=== PATIENT | male | born 1945 | race Caucasian/White ===

== ENCOUNTER → 2022-07-18 | Outpatient (CLI) | payer BC, MEDICARE ==
[2022-07-18 15:20] VITALS: BP 147/78; PULSE 111; TEMP 98; BMI 37.5
--- NOTE | 2022-07-18 15:23 | P.HPBAR ---
Bariatric H&P - History & Physicial H&P Date: 07/18/22 History & Physicial: Visit/CC: lap band Patient initial contact: Initial weight: Initial weight in pounds: Height: 6 ft Initial BMI: Last weight: Current weight: 125.645 kg Current weight in pounds: 277.00 Current BMI: 37.5 [place] body weight (based on NIH guidelines): 80.739 kg Excess body weight loss: The patient is a 76 year-old M who presents for Bariatric Assessment. Patient resents today for LAP-BAND follow-up. Patient requesting a fill. He is gained weight. Past Medical History Past Medical History: Hypertension, Osteoarthritis (OA), Thyroid Disorder History of Any Multi-Drug Resistant Organisms: None Reported Past Surgical History: Bariatric Surgery, Cholecystectomy, Orthopedic Surgery Additional Past Surgical History / Comment(s): thyroid removed, left knee arthroscopy Past Anesthesia/Blood Transfusion Reactions: No Reported Reaction Past Psychological History: No Psychological Hx Reported Smoking Status: Never smoker Past Alcohol Use History: None Reported Past Drug Use History: None Reported Surgical - Exam Vital Signs Temp Pulse BP 98 F 111 H 147/78 07/18/22 15:13 07/18/22 15:13 07/18/22 15:13 - General well developed, well nourished - Eyes PERRL - ENT normal pinna - Neck no masses - Respiratory normal expansion - Cardiovascular Rhythm: regular - Abdomen Abdomen: soft, non tender Bariatric Assessment & Plan Plan: Patient's LAP-BAND was just. She he had 1 mL added to the band. Hernias 2.5 mL in the band. He was able to drink water without difficulty. Bariatric Checklist Checklist: Plan: Checklist: EGD: 1. Hiatal hernia: 2. H. Pylori: HgbA1c: Vitamin D: Smoking: Primary care physician referral: Dr. Oneill Psychiatry clearance: Cardiology clearance: Sleep study: Diet journal: VTE risk score: VTE risk level: Rehab needs at discharge:
== END ==
LOC: BARWHC3 14:52
PROVIDERS: ATTEND Surgery
DX: Z48.815 Encounter for surgical aftercare following surgery on the digestive system (principal); E66.01 Morbid (severe) obesity due to excess calories; I10 Essential (primary) hypertension; M19.90 Unspecified osteoarthritis, unspecified site; E07.9 Disorder of thyroid, unspecified; Z98.84 Bariatric surgery status
CPT/HCPCS: 99212